=== PATIENT | male | born 1995 | race Caucasian/White ===

== ENCOUNTER 2017-06-01 23:48 | Emergency (ER) | payer OTHER ==
--- NOTE | 2017-06-02 00:09 | EDM.PDOC ---
ED HPI GENERAL MEDICAL PROBLEM - General Chief Complaint: Lower Extremity Injury/Pain Stated Complaint: SLIPPED ON ICE AND TWISTED RIGHT KNEE Time Seen by Provider: 06/02/17 00:00 Source of Information: Reports: Patient History Limitations: Reports: No Limitations - History of Present Illness INITIAL COMMENTS - FREE TEXT/NARRATIVE: 22-year-old male presents to the ED with significant pain in his right knee. He states shortly around 7:00 this morning on his way into work he slipped and the ice suffering a valgus strain to the knee. He stated he was just getting better after similar type injury 6 months ago. The knee swelled up quite badly on last occasion. Rise in a knee immobilizer and an Zan wrap in place. He states been taking Motrin but the pain is keeping him from being able to sleep. Is concerned that he may have broken a bone in his knee. Onset: Sudden Onset Date: 06/01/17 Onset Time: 07:00 (Occurred on his way into work.) Duration: Hour(s): Location: Reports: Lower Extremity, Right Quality: Reports: Ache, Throbbing, Other Severity: Moderate (Pain is currently 8 out of 10.) Improves with: Reports: Medication Worsens with: Reports: Movement Context: Reports: Trauma (Slipped on the ice with valgus strain to the knee.). 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) Left Knee Pain Score (Numeric/FACES): 8 - Related Data Allergies Allergy/AdvReac Type Severity Reaction Status Date / Time No Known Allergies Allergy Verified 06/01/17 23:55 Home Meds: Home Meds Ibuprofen [Motrin] 800 mg PO ONCALL PRN 06/01/17 [History] oxyCODONE HCl/Acetaminophen [Percocet 5-325 mg Tablet] 1 - 2 each PO Q4H PRN # 20 tablet 06/02/17 [Rx] Past Medical History Musculoskeletal History: Reports: Other (See Below) (Previous strain of the medial collateral ligament right knee 6 months ago) - Past Surgical History HEENT Surgical History: Reports: Tonsillectomy Social & Family History - Tobacco Use Smoking Status *Q: Never Smoker - Recreational Drug Use Recreational Drug Use: No - Living Situation & Occupation Living situation: Reports: Single Occupation: Employed Review of Systems - Review of Systems Review Of Systems: See Below Constitutional: Reports: No Symptoms Eyes: Reports: No Symptoms Ears: Reports: No Symptoms Nose: Reports: No Symptoms Mouth/Throat: Reports: No Symptoms Respiratory: Reports: No Symptoms Cardiovascular: Reports: No Symptoms GI/Abdominal: Reports: No Symptoms Genitourinary: Reports: No Symptoms Musculoskeletal: Reports: No Symptoms Skin: Reports: No Symptoms Neurological: Reports: No Symptoms Psychiatric: Reports: No Symptoms ED EXAM, GENERAL - Physical Exam Exam: See Below Exam Limited By: No Limitations General Appearance: Alert, WD/WN, No Apparent Distress Extremities: Other (Examination was limited to his right knee. There is no evidence of any traumatic effusion to the knee. Patellofemoral movement is normal. He has pain along both the lateral and medial joint spaces particularly over the MCL inferior and superior insertions. Cruciate ligaments are intact. As well MCL and LCL checked both with the leg in full extension as well as 30 flexion and there is no laxity. Appears to have suffered a grade 1 strain to the medial collateral ligament.) Neurological: Alert, Oriented, CN II-XII Intact, Normal Cognition, Normal Gait Psychiatric: Normal Affect, Normal Mood Skin Exam: Warm, Dry, Intact, Normal Color, No Rash Course - Vital Signs Last Recorded V/S: Last Vital Signs Temp 36.8 C 06/01/17 23:58 Pulse 99 06/01/17 23:58 Resp 16 06/01/17 23:58 BP 115/82 06/01/17 23:58 Pulse Ox 100 06/01/17 23:58 - Orders/Labs/Meds Orders: Active Orders 24 hr Category Date Time Status Knee 3V Rt [CR] Stat Exams 06/02/17 00:06 Taken Meds: Medications Discontinued Medications Generic Name Dose Route Start Last Admin Trade Name Freq PRN Reason Stop Dose Admin Oxycodone/Acetaminophen 2 tab 06/02/17 00:34 Percocet 325-5 Mg PO 06/02/17 00:35 ONETIME ONE - Radiology Interpretation Free Text/Narrative:: 22-year-old male presents to the ED with right knee pain. He states he slipped on the ice going into work at 0700 hrs. this morning suffering a valgus strain. He was able to work him in leg but with difficulty and as the day has gone on its progressively become more painful unable to sleep tonight due to the throbbing pain. He had a previous injury to the knee with marked swelling about 6 months ago noticed is starting to get better. He's had no previous knee surgery. He did not require an MRI of the knee prior. He presents to the ED in a knee immobilizer and Zan wrap. Exam reveals no traumatic effusion. Stressing the ligaments reveals a grade 1 strain of the MCL ligament. X-rays of the knee proved to be completely normal. Patient will continue his conservative management with Motrin 600 mg every 6 hours when necessary. I did give him 2 Percocets in the ED 07/01/24 milligrams strength for pain relief and 20 tablets and a prescription form to fill to use primarily at bedtime to aid sleep. He'll elevate and ice the knee for the next 3 days. He will be off work for the next 5 days. He already has a knee immobilizer in place. Departure - Departure Time of Disposition: 00:34 Disposition: Home, Self-Care 01 Condition: Fair Clinical Impression: Sprain of medial collateral ligament of knee Qualifiers: Encounter type: initial encounter Laterality: right Qualified Code(s): S83.411A - Sprain of medial collateral ligament of right knee, initial encounter - Discharge Information Prescriptions: oxyCODONE HCl/Acetaminophen [Percocet 5-325 mg Tablet] 1 - 2 each PO Q4H PRN # 20 tablet PRN Reason: pain relief. Instructions: Knee Sprain, Adult Referrals: PCP,Not In Area [Primary Care Provider] - Forms: ED Department Discharge, ED Return to Work/School Form Additional Instructions: Evaluation the emergency room tonight in regards to acute injury to your right knee that occurred earlier in the day when you slipped on the ice. Knee had been previously injured and was just trying to get better from last injury. On examination there is no evidence of internal derangement of the knee as there is no effusion or blood within the knee compartment. Pain along the medial joint compartment with strain of the MCL or medial collateral ligament evident on examination. X-rays of the knee show no bony abnormalities. Treatment is time to heal. Suggest elevation of the knee is much as possible. Ice pack to the knee for one half hour out of every 4 hours for the next 2 days. New Motrin 600 mg every 6 hours or Aleve 2 tablets every 8 hours to relieve pain and inflammation. Percocet tabs 5/3/25 milligrams one or 2 every 4-6 hours necessary for pain relief not controlled by Aleve or Motrin alone. He should primarily be utilized at bedtime to help you sleep. Pain will usually start to subside over the next 3-5 days. Note given to excuse her from the workplace until next Wednesday. I would suggest return to work with your knee brace in place for at least the next 2 weeks. Knee brace should be on during the day and off at nighttime as well as the Zan wrap. - My Orders Last 24 Hours: My Active Orders 06/02/17 00:06 Knee 3V Rt [CR] Stat - Assessment/Plan Last 24 Hours: My Active Orders 06/02/17 00:06 Knee 3V Rt [CR] Stat
[2017-06-02] MEDS ORDERED: Acetaminophen/oxyCODONE 325-5 MG Tab PO ONE (00:34)
--- NOTE | 2017-06-02 08:30 | CR ---
Right knee: Four views of the right knee were obtained. Comparison: No prior knee exam. Medial and lateral joint spaces are maintained in height. No joint effusion is seen. No fracture or other bony abnormality is identified. Impression: 1. No abnormality is identified on right knee exam. Diagnostic code #1
== END 2017-06-02 00:45 | disposition home or self-care (01) ==
LOC: JD.ED 23:48
DX: S83.411A Sprain of medial collateral ligament of right knee, initial encounter (principal); W00.0XXA Fall on same level due to ice and snow, initial encounter
CPT/HCPCS: 73562; 99283; A9270